=== PATIENT | male | born 1965 | race Caucasian/White ===

== ENCOUNTER 2018-06-08 10:30 | Day surgery (SDC) | payer MEDICAID ==
--- NOTE | 2018-06-08 11:18 | CP.SDSHP ---
Same Day Surgery H & P - History Proposed Procedure: US guided FNA of neck mass Pre-Op Diagnosis: Submandibular lymph node - Allergies Allergies: Allergies Penicillins Allergy (Verified 07/12/17 09:39) - Physical Exam Mental Status: Alert & Oriented x3 - Impression Impression: US showed a 2.2 cm right submandibular lymph node. Plan US guided FNA. Pt. Evaluated Today:Candidate for Anesthesia & Procedure: No - Date & Time Date: 06/08/18 Time: 11:00 Short Stay Discharge - Short Stay Discharge Admitting Diagnosis/Reason for Visit: DX:NECK MASS Disposition: HOME/ ROUTINE
--- NOTE | 2018-06-08 11:20 | PCM.SURG1 ---
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 Post-Operative Diagnosis: Neck node Operation Performed: US guided FNA Specimen/Specimens Removed: 6 passes with a 25 g needle Estimated Blood Loss: EBL {In ML}: 0 Blood Products Given: N/A Drains Used: No Drains Post-Op Condition: Good Date of Surgery/Procedure: 06/08/18 Time of Surgery/Procedure: 11:15
[2018-06-08 18:31] VITALS: BMI 26.0
--- NOTE | 2018-06-09 12:53 | US ---
PROCEDURE: Date of procedure: 06/08/2018 Procedure: Ultrasound-guided FNA of right submandibular lymph node, CPT 23225 Ultrasound guidance for biopsy, 57719 Medications: 3cc 1% Lidocaine HISTORY: Multiple cervical lymph nodes with a 2.2 Cm right submandibular lymph node. TECHNIQUE: Following informed consent and procedure time-out, limited ultrasound patient's right neck demonstrates an enlarged submandibular lymph node measuring 2.2 Cm. The patient's neck was prepped and draped in the usual sterile fashion. The skin was anesthetized with 1 percent lidocaine. Ultrasound-guided fine needle aspiration was then performed using a 25 gauge needle. A total of 6 passes were made into the lymph node under direct ultrasound guidance. FNA specimens were obtained and sent for routine pathology and flow cytometry. A post biopsy ultrasound showed no hematoma IMPRESSION: Ultrasound-guided biopsy of large right submandibular lymph node.
== END 2018-06-08 12:40 | disposition home or self-care (01) ==
LOC: C.SPRAD 10:30
PROVIDERS: ATTEND Otolaryngology
DX: R22.1 Localized swelling, mass and lump, neck (principal)

== ENCOUNTER 2018-07-09 12:41 | Outpatient (CLI) | payer MEDICAID | END 2018-07-09 12:42 | disposition home or self-care (01) | LOC: C.RADH 12:42 | DX: R13.10 Dysphagia, unspecified (principal) ==

== ENCOUNTER 2018-07-20 09:40 | Day surgery (SDC) | payer MEDICAID ==
--- NOTE | 2018-07-20 11:22 | US ---
PROCEDURE: Date of procedure: 07/20/2018 Procedure: Ultrasound-guided FNA of right submandibular lymph node, CPT 33990 Ultrasound guidance for biopsy, 73782 Medications: 3cc 1% Lidocaine HISTORY: Multiple cervical lymph nodes with a 2.5 Cm right submandibular lymph node. TECHNIQUE: Following informed consent and procedure time-out, limited ultrasound patient's right neck demonstrates multiple enlarged lymph nodes which is ovoid shape and hypoechoic. Largest right submandibular lymph node measures 2.5 Cm. The patient's neck was prepped and draped in the usual sterile fashion. The skin was anesthetized with 1 percent lidocaine. Ultrasound-guided fine needle aspiration was then performed using a 25 gauge needle. A total of 6 passes were made into the lymph node under direct ultrasound guidance. FNA specimens were obtained and sent for routine pathology and flow cytometry. A post biopsy ultrasound showed no hematoma IMPRESSION: Ultrasound-guided FNA of enlarged right submandibular lymph node.
[2018-07-20 18:26] VITALS: BMI 28.8
== END 2018-07-20 10:31 | disposition home or self-care (01) ==
LOC: C.SPRAD 09:40
PROVIDERS: ATTEND Radiology Vascular & Interventional Radiology
DX: R59.0 Localized enlarged lymph nodes (principal)